=== PATIENT | male | born 1975 | race Caucasian/White ===

== ENCOUNTER 2019-05-23 12:32 | Inpatient (IN) | payer OTHER ==
[~2019-05-23] VITALS: Ht 182.9 cm; Wt 108.9 kg
--- NOTE | 2019-05-23 12:25 | NUR ---
MS SOCIAL STUDIES TEACHER NOTES RECEIVED PATIENT VIA GURNEY DIRECT ADMIT FROM [facility] WITH A CHIEF COMPLAINT OF BACK PAIN DX CHOLELITHIASIS, ACCOMPANIED BY EMT'S. ALERT AND ORIENTED X4, VERBALLY RESPONSIVE, ABLE TO FOLLOW DIRECTIONS AND MAKE NEEDS KNOWN. COMPLAINTS OF 4/10 PAIN ON HIS BACK, PER RN REPORT LAST DILAUDID GIVEN AT 1140AM. BREATHING REGULAR AND UNLABORED. RIGHT AC G20 IV LINE INTACT AND PATENT WITH NO BLEEDING AND S/S OF INFILTRATION/INFECTION NOTED. BODY ASSESSMENT DONE NO SKIN ALTERATIONS SEEN. KEPT CLEAN AND COMFORTABLE. CONTINUOUSLY MONITORED
[2019-05-23] MEDS ORDERED: AMPH20TA3 PO (12:52)
[2019-05-23] MEDS ORDERED: MORPHINE SULFATE INJ 2 MG/ML DISP.SYRIN IV PRN (13:00)
[2019-05-23] MEDS ORDERED: Z GUARD REMEDY 2 OZ OINT TP PRN (13:00)
[2019-05-23] MEDS ORDERED: ONDANSETRON HCL/PF 4 MG/2 ML VIAL IVP PRN (13:00)
[2019-05-23] MEDS ORDERED: MAGNESIUM HYDROXIDE 30 ML UDC PO PRN (13:00)
[2019-05-23] MEDS ORDERED: ZOLPIDEM TARTRATE 5 MG TABLET PO PRN (13:00)
[2019-05-23] MEDS: IV NS 0.9% 1,000 ML IV PRN (14:00)
--- NOTE | 2019-05-23 14:00 | NUR ---
MS RN NOTES ECG DONE. SEEN AND EXAMINED BY .
[2019-05-23] MEDS: CIPROFLOXACIN IV RTU 400 MG in PREMIX 1 EA IV SCH (14:12)
[2019-05-23] MEDS: KETOROLAC TROMETHAMINE INJ 30 MG/ML VIAL IV PRN ×2 (14:39→20:49)
[2019-05-23 16:00] VITALS: BP 113/68
[2019-05-23] MEDS: METRONIDAZOLE 500MG/ NS 100ML 500 MG in PREMIX 1 EA IV SCH ×2 (18:21→23:59)
--- NOTE | 2019-05-23 18:35 | NUR ---
NM HIDA SCAN WAS COMPLETED. TECH:RB
--- NOTE | 2019-05-23 18:43 | NUR ---
MS RN CLOSING NOTES PATIENT IN BED ALERT AND ORIENTED X 3; AFEBRILE WITH NO S/S OF DISTRESS OBSERVED. BREATHING REGULAR AND UNLABORED. S/P HIDA SCAN WITH CONTRAST WITH NO ADVERSE REACTIONS FROM THE PROCEDURE NOTED. COMPLAINED OF 9/10 PAIN ON THE BACK; MORPHINE 2MG IV GIVEN. STARTED ON CLEAR LIQUIDS DIET, TOLERATING WELL WITH NO NAUSEA/VOMITING NOTED. BLADDER/BOWEL CONTINENT WITH BRP. RIGHT AC G20 IV LINE INTACT AND PATENT, INFUSING WELL. WILL ENDORSE TO NOC SHIFT FOR LAPAROSCOPIC CHOLECYSTECTOMY POSSIBLE OPEN TOMORROW MORNING; NPO POST MIDNIGHT AND FOR CONTINUITY OF CARE.
--- NOTE | 2019-05-23 19:51 | NUR ---
MS RN NOTES PT C/O ABD PAIN 06/28. PT STATES "MORPHINE IS NOT WORKING FOR ME." NOTIFIED DR FIGUEROA. MADE AWARE RE PT'S CONDITION. WITH NEW ORDERS MADE. ORDERS NOTED AND CARRIED OUT. WILL CONTINUE TO MONITOR.
[2019-05-23] MEDS: HYDROMORPHONE 1 MG/1 ML DISP.SYRIN IV PRN ×2 (20:15→23:58)
[2019-05-23 20:16] VITALS: BP 116/65
[2019-05-24] VITALS (18 sets, daily range): BP systolic 93–108; BP diastolic 52–68
[2019-05-24] MEDS: CIPROFLOXACIN IV RTU 400 MG in PREMIX 1 EA IV SCH ×2 (03:05→13:42)
[2019-05-24] MEDS: KETOROLAC TROMETHAMINE INJ 30 MG/ML VIAL IV PRN ×3 (03:05→23:30)
[2019-05-24] MEDS: HYDROMORPHONE 1 MG/1 ML DISP.SYRIN IV PRN (04:09)
[2019-05-24] MEDS: METRONIDAZOLE 500MG/ NS 100ML 500 MG in PREMIX 1 EA IV SCH ×4 (05:30→23:29)
--- NOTE | 2019-05-24 06:18 | NUR ---
MS RN NOTES AWAKE & RESPONSIVE. NOT IN ANY DISTRESS. NO SOB NOTED. DENIES ANY PAIN OR DISCOMFORT AT THIS TIME. WITH IVF INFUSING WELL. MONITORED ACCORDINGLY. CALL LIGHT WITHIN REACH. BED IN LOWEST POSITION. SR UP X 2 FOR SAFETY. WILL ENDORSE TO NEXT SHIFT.
[2019-05-24] MEDS ORDERED: ANESTHESIA TRAY IN PYXIS 1 EA TRAY MC ONE (06:28)
[2019-05-24] MEDS ORDERED: LIDOCAINE HCL/PF 1% 30 ML SDV ONE (06:28)
[2019-05-24] MEDS ORDERED: BUPIVACAINE MPF 0.5% W/EPI INJ 30 ML VIAL ONE (06:28)
[2019-05-24 06:31] LABS: BASOPHILS % (AUTO) 0.2 % (0.0-2.0); EOSINOPHILS % (AUTO) 0.1 % (0.0-6.0); HEMATOCRIT 52 % (39-51); HEMOGLOBIN 17.5 g/dL (13.5-17.5); LYMPHOCYTES # (AUTO) 1.2 /CMM (0.8-4.8); LYMPHOCYTES % (AUTO) 5.2 % (20.0-44.0); MEAN CORPUSCULAR HGB CONC 34 g/dl (31.0-36.0); MEAN CORPUSCULAR VOLUME 90 fL (80-96); MONOCYTES # (AUTO) 1.4 /CMM (0.1-1.30); MONOCYTES % (AUTO) 6.3 % (2.0-12.0); NEUTROPHILS # (AUTO) 19.8 /CMM (1.8-8.9); NEUTROPHILS % (AUTO) 88.2 % (43.0-81.0); PLATELET COUNT (AUTO) 199 /CMM (150-450); RED BLOOD CELL COUNT(AUTO) 5.81 MIL/uL (4.5-6.0); WHITE BLOOD COUNT (AUTO) 22.5 K/uL (4.3-11.0)
[2019-05-24 06:43] LABS: CREATININE 1.2 mg/dL (0.6-1.3); MAGNESIUM 1.9 mg/dL (1.8-2.4); PHOSPHORUS 3.6 mg/dL (2.5-4.9); POTASSIUM 4.4 mmol/L (3.5-5.1)
[2019-05-24] MEDS ORDERED: FENTANYL PF 100MCG/2ML AMPUL ONE ×2 (06:54→08:20)
--- NOTE | 2019-05-24 07:01 | NUR ---
MS RN OPENING NOTES REPORT GIVEN BY ZENON MCMILLAN THAT PT IS IN THE SURGERY FOR LAPAROSCOPIC CHOLECYSTECTOMY POSSIBLE OPEN.
[2019-05-24] MEDS ORDERED: BUPIVACAINE MPF W/EPI 0.25% 30 ML VIAL ONE (07:26)
--- NOTE | 2019-05-24 09:29 | NUR ---
RN NOTES PT RETURN TO UNIT AT 0912 VIA STRETCHER ACCOMPANIED BY RECOVERY NURSE YAMILEX AND PT'S JANAE. PT IS AWAKE, ALERT AND ORIENTED X4. ABLE TO MAKE NEEDS KNOWN AND VERBALIZED THAT PAIN ON HIS ABDOMEN IS TOLERABLE AT THIS TIME. V/S TAKEN: BP 103/60, P 98. R 18, T 98.4 AND SP02 100% ON 02 VIA N/C AT 2LPM. PT S/P LAPAROSCOPIC CHOLECYSTECTOMY BY DR RICE. PT WITH FOUR SURGICAL INCISIONS INCLUDING BRANDEN DRAIN ON RIGHT UPPER ABDOMEN, ONE ON THE LOWER RIGHT ABDOMEN AND TWO ON MID ABDOMEN. ALL DRESSINGS C/D/I. BRANDEN DRAIN BULB NOTED WITH 10ML OF BLOODY DRAINAGE. POST SURGERY ORDERS BY DR RICE VERIFIED AND WILL CARRY OUT. BED PLACED IN LOW LOCKED POSITION W/ SR UP X2. CALL LIGHT WITHIN EASY REACH OF PT. WILL CONTINUE TO MONITOR.
[2019-05-24] MEDS: IV NS 0.9% 1,000 ML IV PRN (10:56)
[2019-05-24] MEDS: MORPHINE SULFATE INJ 2 MG/ML DISP.SYRIN IV PRN ×3 (11:09→21:18)
--- NOTE | 2019-05-24 11:12 | NUR ---
RN NOTES/PAIN MANAGEMENT PT C/O ACHING SHARP PAIN ON HIS OPERATIVE SITES ON ABDOMEN WITH SCALE OF 8/10. PRN MORPHINE 2MG/1ML IVP ADMINISTERED AT 1109. WILL CONTINUE TO MONITOR AND REASSESS PT.
--- NOTE | 2019-05-24 14:49 | NUR ---
RN NOTES/PAIN MANAGEMENT PT C/O ACHING SHARP PAIN ON ABDOMEN WITH SCALE OF 8/10. PRN MORPHINE 2MG/1ML IVP ADMINISTERED AT 1438. WILL CONTINUE TO MONITOR AND REASSESS PT
--- NOTE | 2019-05-24 17:07 | NUR ---
RN NOTES/PAIN MANAGEMENT PT C/O ACHING PAIN ON ABDOMEN WITH SCALE OF 6/10. PRN TORADOL 15MG/0.5 ML IVP ADMINISTERED AT 1703. WILL CONTINUE TO MONITOR AND REASSESS PT.
--- NOTE | 2019-05-24 18:50 | NUR ---
MS RN CLOSING NOTES PT IN BED AWAKE AND RESTING AT MODERATE HIGH BACKREST POSITION. AT BEDSIDE. A/O X4 AND ABLE TO MAKE NEEDS KNOWN. ON ROOM AIR, BREATHING EVEN AND UNLABORED, NO SOB NOTED. SURGICAL INCISIONS DRESSINGS ON ABDOMEN C/D/I. BRANDEN ROBERT ON RUQ IN PLACE WITH THIN BLOODY DRAINAGE NOTED AND OUTPUT OF 40ML RECORDED. IV ACCESS ON RAC INTACT AND PATENT, IVF OF NS @ 100ML/HR INFUSING WELL, NO S/S OF INFILTRATIONS NOTED. ALL NEEDS AND CARE ATTENDED WELL. BED IN LOW LOCKED POSITION W/ SR UP X2. CALL LIGHT WITHIN REACH OF PT. WILL ENDORSE TO CUT OFF MAN NURSE FOR SEBASTIAN.
[2019-05-24] MEDS: HYDROCODONE/APAP 5/325MG 1 EACH TABLET PO PRN (19:13)
[2019-05-24] MEDS ORDERED: MORPHINE SULFATE INJ 2 MG/ML DISP.SYRIN IV ONE (20:30)
--- NOTE | 2019-05-24 21:20 | NUR ---
MS RN NOTE RECEIVED MIDSHIFT REPORT FROM H[facility]OL[facility]O. PT A/O X4, CURRENTLY RESTING IN BED. NO SIGNS OF SOB OR DISTRESS, NO C/O PAIN. IV IN RAC INTACT WITH IVF INFUSING. SX REMAINS IN TACT WITH NO SIGNS OF INFECTIONS, BRANDEN DRAIN IN PLACE WITH ADEQUATE REDDISH DRAINAGE NOTED. ALL CURRENT NEEDS ATTENDED TO. BED LOW, LOCKED, UPPER RAILS UP, AND CALL LIGHT WITHIN REACH. WILL CONT. TO MONITOR.
--- NOTE | 2019-05-24 21:20 | NUR ---
MS RN NOTES AWAKE & RESPONSIVE. NOT IN ANY DISTRESS. NO SOB NOTED. WITH IVF INFUSING WELL. VSS. BRANDEN KEPT ON NEGATIVE PRESSURE DRAINING MODERATE REDDISH OUTPUT. CALL LIGHT WITHIN REACH. BED IN LOWEST POSITION. SR UP X2 FOR SAFETY. REPORT GIVEN TO VIKRAM YARBROUGH FOR CONTINUITY OF CARE.
[2019-05-25] MEDS: CIPROFLOXACIN IV RTU 400 MG in PREMIX 1 EA IV SCH ×2 (00:31→13:04)
[2019-05-25] MEDS: IV NS 0.9% 1,000 ML IV PRN ×2 (00:31→16:22)
[2019-05-25] MEDS: HYDROCODONE/APAP 5/325MG 1 EACH TABLET PO PRN ×5 (02:00→22:29)
[2019-05-25] MEDS: METRONIDAZOLE 500MG/ NS 100ML 500 MG in PREMIX 1 EA IV SCH ×3 (05:03→16:59)
[2019-05-25] MEDS: KETOROLAC TROMETHAMINE INJ 30 MG/ML VIAL IV PRN (05:33)
--- NOTE | 2019-05-25 06:10 | NUR ---
MS RN NOTE PT REMAINS A/O X4, CURRENTLY RESTING IN BED. NO SIGNS OF SOB OR DISTRESS, NO C/O PAIN. IV IN RAC INTACT WITH IV ATB INFUSING. SX REMAINS IN TACT WITH NO SIGNS OF INFECTIONS, BRANDEN DRAIN IN PLACE WITH ADEQUATE REDDISH DRAINAGE 190 ML NOTED. ALL CURRENT NEEDS ATTENDED TO. BED LOW, LOCKED, UPPER RAILS UP, AND CALL LIGHT WITHIN REACH. WILL CONT. TO MONITOR AND ENDORSE TO NEXT SHIFT FOR SEBASTIAN.
[2019-05-25 07:00] VITALS: BP 102/62
[2019-05-25 07:45] LABS: BASOPHILS % (AUTO) 0.1 % (0.0-2.0); EOSINOPHILS % (AUTO) 0.5 % (0.0-6.0); HEMATOCRIT 46 % (39-51); HEMOGLOBIN 15.2 g/dL (13.5-17.5); LYMPHOCYTES # (AUTO) 1.2 /CMM (0.8-4.8); LYMPHOCYTES % (AUTO) 8.2 % (20.0-44.0); MEAN CORPUSCULAR HGB CONC 34 g/dl (31.0-36.0); MEAN CORPUSCULAR VOLUME 91 fL (80-96); MONOCYTES # (AUTO) 0.8 /CMM (0.1-1.30); MONOCYTES % (AUTO) 5.5 % (2.0-12.0); NEUTROPHILS # (AUTO) 12.3 /CMM (1.8-8.9); NEUTROPHILS % (AUTO) 85.7 % (43.0-81.0); PLATELET COUNT (AUTO) 170 /CMM (150-450); RED BLOOD CELL COUNT(AUTO) 5.01 MIL/uL (4.5-6.0); WHITE BLOOD COUNT (AUTO) 14.3 K/uL (4.3-11.0)
[2019-05-25 08:02] LABS: ALBUMIN 2.7 g/dL (3.4-5.0); BILIRUBIN,TOTAL 1.3 mg/dL (0.2-1.0); CALCIUM, SERUM 7.9 mg/dL (8.5-10.1); CREATININE 1.3 mg/dL (0.6-1.3); MAGNESIUM 1.8 mg/dL (1.8-2.4); POTASSIUM 4.2 mmol/L (3.5-5.1); TOTAL PROTEIN, SERUM 5.9 g/dL (6.4-8.2)
--- NOTE | 2019-05-25 11:00 | NUR ---
ENCOURAGED PATIENT TO WALK IN [address].
[2019-05-25] MEDS ORDERED: K PHOS NEUTRAL 250 MG TABLET PO ONE (15:00)
[2019-05-25 16:31] VITALS: BP 103/66
--- NOTE | 2019-05-25 18:26 | NUR ---
PATIENT RESTING IN ROOM, AT BEDSIDE.NO DISTRESS NOTED, NO COMPLIANCE OF PAIN AT THIS MOMENT. LAST PAIN MEDICATION GIVEN AT 1700. IV IN RAC INTACT WITH NS 0.9 AT 100 ML/HR RUNNING. DRESSING REMAINS INTACT, BRANDEN DRAIN IN PLACE WITH OUTPUT 110ML. BRANDEN DRAIN WILL BE REMOVED TOMORROW AT BEDSIDE PRIOR D/C BY DR. RICE . BEDIN LOW, LOCKED POSITION, UPPER RAILS UP, AND CALL LIGHT WITHIN REACH. WILL ENDORSE TO NEXT SHIFT FOR SEBASTIAN.
--- NOTE | 2019-05-25 19:45 | NUR ---
RN NOTES RECEIVED PATIENT AWAKE, ALERT ORIENTED X4, NO SIGNS OF ACUTE RESPIRATORY DISTRESS NOTED, AMBULATORY WITH STANDBY ASSIST, SAFETY MEASURES IN PLACE, CALL LIGHT WITHIN EASY REACH, IS AT BEDSIDE AT THIS TIME, ALL NEEDS ATTENDED, DENIES PAIN AT THIS TIME WITH MILD AND SLIGHT DISCOMFORT. WILL CONTINUE TO MONITOR ACCORDINGLY.
[2019-05-25 20:15] VITALS: BP 100/57
[2019-05-26] MEDS: METRONIDAZOLE 500MG/ NS 100ML 500 MG in PREMIX 1 EA IV SCH ×3 (00:38→11:27)
[2019-05-26] MEDS: CIPROFLOXACIN IV RTU 400 MG in PREMIX 1 EA IV SCH ×2 (01:49→12:31)
[2019-05-26] MEDS: ACETAMINOPHEN 325 MG TABLET PO PRN ×2 (04:26→11:17)
[2019-05-26 06:42] LABS: BASOPHILS # (AUTO) 0.1 /CMM (0.0-0.2); BASOPHILS % (AUTO) 0.5 % (0.0-2.0); EOSINOPHILS % (AUTO) 0.9 % (0.0-6.0); HEMATOCRIT 45 % (39-51); HEMOGLOBIN 15.2 g/dL (13.5-17.5); LYMPHOCYTES % (AUTO) 8.3 % (20.0-44.0); MEAN CORPUSCULAR HGB CONC 34 g/dl (31.0-36.0); MEAN CORPUSCULAR VOLUME 90 fL (80-96); MONOCYTES # (AUTO) 0.8 /CMM (0.1-1.30); MONOCYTES % (AUTO) 6.6 % (2.0-12.0); NEUTROPHILS # (AUTO) 10.4 /CMM (1.8-8.9); NEUTROPHILS % (AUTO) 83.7 % (43.0-81.0); PLATELET COUNT (AUTO) 185 /CMM (150-450); RED BLOOD CELL COUNT(AUTO) 5.02 MIL/uL (4.5-6.0); WHITE BLOOD COUNT (AUTO) 12.4 K/uL (4.3-11.0)
[2019-05-26 07:07] LABS: ALBUMIN 2.5 g/dL (3.4-5.0); BILIRUBIN,TOTAL 0.9 mg/dL (0.2-1.0); CALCIUM, SERUM 8.1 mg/dL (8.5-10.1); CREATININE 0.9 mg/dL (0.6-1.3); POTASSIUM 4.1 mmol/L (3.5-5.1); TOTAL PROTEIN, SERUM 5.9 g/dL (6.4-8.2)
--- NOTE | 2019-05-26 07:20 | NUR ---
MS RN OPENING NOTES RECEIVED PT, AWAKE, AMBULATORY, A/O X4. DURING ROOM ROUNDS PT JUST WENT TO THE BATHROOM AND GOING BACK TO BED. PT TOLERATING RA, WITH NO ACUTE RESPIRATORY DISTRESS NOTED. PT DENIES ANY PAIN OR DISCOMFORT AT THE MOMENT. BRANDEN DRAIN NOTED WITH SEROSANGUINEOUS DRAINAGE. PT DENIES ANY QUESTIONS OR CONCERNS AT THIS SARINA. IVF NS AT 100ML/HR TO LFA G22, INTACT AND FLUID INFUSING WELL/ PT KEPT COMFORTABLE. CALL LIGHT KEPT WITHIN REACH. BED IN LOWEST, LOCKED POSITION WITH SR X2. WILL CONTINUE PLAN OF CARE.
--- NOTE | 2019-05-26 07:20 | NUR ---
RN NOTES ALL NEEDS ATTENDED, ABLE TO REST AND SLEEP AT INTERVALS, IV ACCESS INTACT AND PATENT, BRANDEN DRAINING PINKISK SANGUINOUS OUTPUT, MEASURES 60ML, SAFETY MEASURES IN PLACE, ENDORSED TO AM NURSE FOR CONTINUITY OF CARE.
[2019-05-26 08:00] VITALS: BP 110/64
[2019-05-26] MEDS ORDERED: HYDR-4384 PO (08:33)
[2019-05-26] MEDS ORDERED: CIPR-262 PO (08:33)
[2019-05-26] MEDS ORDERED: METR500T PO (08:33)
--- NOTE | 2019-05-26 11:15 | NUR ---
MS RN NOTES SEEN BY DR. HAIR AND REMOVED BRANDEN DRAIN. PRESSURE DRY DRESSING APPLIED. WILL CONTINUE TO MONITOR.
[2019-05-26] MEDS ORDERED: K PHOS NEUTRAL 250 MG TABLET PO ONE (11:30)
--- NOTE | 2019-05-26 11:50 | NUR ---
MS RN NOTES SEEN BY HOSPITALIST/HAND [place] FOOD MAKER/CC SATED PT CLEARED FOR DISCHARGE TODAY. PT AWARE TO FOLLOW UP WITH DR HAIR IN A WEEK FOR DYLON REMOVAL. PT AWARE OF DISCHARGE, AWAITING FOR SPOUSE TO HONEYCOMB DECAPPER.
[2019-05-26] MEDS ORDERED: CEPH-570 PO (14:04)
--- NOTE | 2019-05-26 15:50 | NUR ---
MS LINER ASSEMBLER NOTES PT TO DISCHARGE TO HOME. ACCOMPANIED BY SPOUSE AND DAUGHTER. PT A/O X4. AMBULATORY. PT TOLERATING RA, WITH NO ACUTE RESPIRATORY DISTRESS NOTED. PT DENIES ANY PAIN OR DISCOMFORT AT THIS TIME. PT WAS SEEN BY DR HAIR AND REMOVED BRANDEN DRAIN, SITE WAS APPLIED PRESSURE DRESSING. NO PICTURE TAKEN, PT STATED IT'S A NEW DRESSING AND DOESN'T WANT IT TO BE TOUCHED FOR NOW. PT INSTRUCTED HOW TO REPLACE DRESSING QD AND PRN. DISCHARGE PAPERS REVIEWED AND SIGNED BY PT. ALL BELONGINGS WITH THE PT. FOLLOW-UP APPT WITH DR. HAIR IN A WEEK INSTRUCTED TO PT, PROVIDED WITH DR'S OFFICE NUMBER AND ADDRESS. PRESCRIPTION OF ANTIBIOTIC KEFLEX AND NORCO GIVEN TO PT, SPOUSE AT BED SIDE AWARE WELL. ALL NEEDS AND CARE ATTENDED. PT LEFT THE UNIT AT 1540, ESCORTED BY HEAD CORRECTION OFFICER VIA WHEELCHAIR, ACCOMPANIED BY SPOUSE AND DAUGHTER. CN/MIKAYLA AND HOSPITALIST/DISTRIBUTION OPERATION SUPERVISOR/CC AWARE OF DISCHARGE.
== END 2019-05-26 15:45 | disposition home or self-care (01) | DRG 419 ==
LOC: MED 12:32
PROVIDERS: ADMIT Nurse Practitioner Acute Care; ATTEND Nurse Practitioner Acute Care
PROC: 0FT44ZZ Resection of Gallbladder, Percutaneous Endoscopic Approach (ICD-10-PCS; principal; 2019-05-24)
DX: K81.0 Acute cholecystitis (principal); E87.6 Hypokalemia; F90.9 Attention-deficit hyperactivity disorder, unspecified type; F98.8 Other specified behavioral and emotional disorders with onset usually occurring in childhood and adolescence
CPT/HCPCS: 36415; 78226; 80048-TC; 80053-TC; 80061-TC; 83735-TC; 84100-TC; 85025-TC; 85610-TC; 85730-TC; 87070-TC; 87081-TC; 88304-TC; 88312-TC; 93307-TC; A4216; A6403; A9537; G0378; J0330; J0690; J0744; J1170; J1885; J2001; J2270; J2704; J3010; J3490; J7030